=== PATIENT | male | born 1980 | race African-American/Black ===

== ENCOUNTER 2022-01-06 09:55 | Emergency (ER) | payer MEDICAID ==
[~2022-01-06] VITALS: Ht 182.9 cm; Wt 77.0 kg
[2022-01-06] MEDS ORDERED: KETOROLAC 15MG/ML VIAL IV ONE (11:45)
[2022-01-06] MEDS ORDERED: TETANUS, DIPHTHERIA, PERTUSSIS VAC/PF 0.5ML (>10YR OLD) IM ONE (11:45)
[2022-01-06 13:07] LABS: BASOPHILS % 0.9 % (0.0-2.0); EOSINOPHILS % 1.1 % (0.0-5.0); HEMATOCRIT. 37.8 % (42.0-52.0); HEMOGLOBIN. 13.1 g/dL (14.0-18.0); LYMPHOCYTES % 16.8 % (20.0-50.0); MEAN CORPUSCULAR HEMOGLOBIN 32.3 pg (28.0-32.0); MEAN CORPUSCULAR VOLUME 93.4 fL (80.0-94.0); MEAN PLATELET VOLUME 8.2 fl (7.4-10.4); MONOCYTES % 11.5 % (2.0-8.0); NEUTROPHILS % 69.7 % (40.0-76.0); PLATELET 196 x1000/uL (130-400); RED BLOOD CELL COUNT 4.04 mill/uL (4.7-6.1); RED CELL DISTRIBUTION WIDTH 15.1 % (11.6-14.6)
[2022-01-06 13:15] LABS: CHLORIDE 115 mEq/L (98-107)
[2022-01-06] MEDS ORDERED: IOHEXOL-300 50 ML BOTTLE IV ONE (15:05)
[2022-01-06] MEDS ORDERED: IOHEXOL-300 100 ML BOTTLE ONE (15:05)
[2022-01-06 15:21] VITALS: BP 12/77
== END 2022-01-06 15:22 | disposition home or self-care (01) ==
LOC: ER 11:04
DX: M79.18 Myalgia, other site (principal); M25.512 Pain in left shoulder; F12.10 Cannabis abuse, uncomplicated; F17.290 Nicotine dependence, other tobacco product, uncomplicated; Z98.890 Other specified postprocedural states
CPT/HCPCS: 36415; 70450; 71045; 71260; 72125; 72170; 74177; 80053; 85025; 86850; 86900; 86901; 90471; 90715; 93005; 96374; 99285; J1885; Q9967

== ENCOUNTER 2022-07-06 14:31 | Emergency (ER) | payer MEDICAID ==
[~2022-07-06] VITALS: Ht 182.9 cm; Wt 82.0 kg
[2022-07-06 14:53] VITALS: BP 108/74
[2022-07-06] MEDS ORDERED: MAG355OR20 PO (22:11)
[2022-07-06] MEDS ORDERED: FAMO-135 MT (22:11)
[2022-07-06] MEDS ORDERED: IBUP-2029 MT (22:11)
[2022-07-06] MEDS ORDERED: PENI500T MT (22:11)
== END 2022-07-06 23:04 | disposition home or self-care (01) ==
LOC: ER 14:31
DX: K21.9 Gastro-esophageal reflux disease without esophagitis (principal); K02.9 Dental caries, unspecified; F12.10 Cannabis abuse, uncomplicated
CPT/HCPCS: 99281